=== PATIENT | male | born 1975 | race Two or more races ===

== ENCOUNTER 2024-06-11 14:21 | Outpatient (AMB) | payer OTHER, SELFPAY ==
--- NOTE | 2024-06-11 14:47 | A.OFFVIS_ITS ---
Intake Visit Reasons: Vasectomy Intake Note: Patient is present for Vasectomy Urology Medication:none Blood Thinner:none Antibiotic Allergies:none Business Office Representative Required: No Accompanied by: Spouse Allergies No Known Allergies Allergy (Verified 06/11/24 14:54) [facility] Medical History Patient denies medical problems Office Procedures Vasectomy 15878 - Vasectomy Office Meds lidocaine (PF) 10 mg/mL (1 %) injection solution Performing Provider: Osmar Johnson MD [place] [facility] Administered by: Maria M Ruiz RN on 06/11/24 14:47 Dose Route Admin Location Dispensed Lot Number Expiration Date [facility] Wool Handler 2 mL Infiltration 10 mL Assessment & Plan Assessment & Plan Orders: Orders AMB Vasectomy Today R45.89 - Other symptoms and signs involving emotional state Coding CPT Codes Office Procedure - CPT: 13705 - Vasectomy ([id number])
--- NOTE | 2024-06-11 14:47 | MHC.OFFVIS ---
Intake Visit Reasons: Vasectomy Intake Note: Patient is present for Vasectomy Urology Medication:none Blood Thinner:none Antibiotic Allergies:none Tail Worker Required: No Accompanied by: Spouse Allergies No Known Allergies Allergy (Verified 06/11/24 14:54) [facility] Medical History Patient denies medical problems Office Procedures Vasectomy 55606 - Vasectomy Office Meds lidocaine (PF) 10 mg/mL (1 %) injection solution Performing Provider: Osmar Johnson MD [place] [facility] [facility] Administered by: Maria M Ruiz RN on 06/11/24 14:47 Dose Route Admin Location Dispensed Lot Number Expiration Date [facility] Supervisor Esters [employer] Emulsifiers 2 mL Infiltration 10 mL Assessment & Plan Assessment & Plan Orders: Orders AMB Vasectomy Today R45.89 - Other symptoms and signs involving emotional state Coding CPT Codes Office Procedure - CPT: 01341 - Vasectomy ([id number])
--- OUTSIDE RECORDS SUMMARY | 2024-06-11 15:59 | XMS_ITS | Clinical Summary ---
Author Organization [employer] Address [address] [facility] 7[address] [place] [address] Care Team Providers Care Linen Sorter Name Role Phone Lucia Kaiser PA-C Primary Care Provider Unav ailable Allergies No known active allergies Medications No known medications Active Problems Problem Noted Date Diagnosed Date Mixed hyperlipidemia 05/12/2023 Overview (05/12/2023): Lipid panel 10/2022 tot chol 289, LDL 218, HDL 50, trig 103. Pt declined starting statin he declined at that time Encounters Date Type Department Care Team Description 05/05/2024 3:00 PM EST Office Visit [facility] DENTAL [address] [place] [address] Tamara Peters Stage 2 grade A localized periodontitis per AAP/EFP 2017 classification (Primary Dx); Encounter for dental examination; Accretions on teeth; Dental calculus 05/04/2024 Travel from Last 3 Months Social History Tobacco Use Types Packs/Day Years Used Date Smoking Tobacco: Never Smokeless Tobacco: Never Tobacco Cessation:Counseling Given: Not Answered Alcohol Use Standard Drinks/Week Comments Yes 0 (1 standard drink = 0.6 oz pur e alcohol) Socially Housing Stability Answer Date Recorded What is your housing situation today? I have delta anthony 01/07/[address] you li ve. Do you have problems with any of the following? None of the above 01/07/2023 Food Insecurity Answer Date Recorded Within the past 12 months, y ou worried that your food would run out before you got money to buy more: Never True 01/07/2023 Within the past 12 months,th e food you bought just didn't last and you didn't have enough money to get more: Never True Transportation Answer Date Recorded In the past 12 months, has l ack of transportation kept you from medical appts, meetings, work or from getting things needed for daily living? No 01/07/2023 Utilities Answer Date Recorded In the past 12 months, has t he electric, gas, oil or water company threatened to shut off services in your home? No 01/07/2023 Depression Answer Date Recorded Patient Health Questionnaire-2 Score 0 11/05/2022 Comments Unknown Sex and Gender Information Value Date Recorded Sex Assigned at Choose not to disclose 8:48 AM EDT Legal Sex Male 8:47 AM EDT Gender Identity Choose not to disclose 8:48 AM EDT Sexual Orientation Choose not to disclose 2022 8:48 AM EDT Last Filed Vital Signs Vital Sign Reading Time Taken Comments Blood Pressure 100/60 11/05/2022 12:20 PM EDT Pulse 60 11/05/2022 12:20 PM EDT Temperature 36.2 ??C (97.2 ??F) 11/05/2022 12:20 PM E DT Respiratory Rate 16 11/05/2022 12:20 PM EDT Oxygen Saturation - - Inhaled Oxygen Concentration - - Weight 73.8 kg (162 lb 9.6 oz) 11/05/2022 12:20 PM EDT Height 170.8 cm (5' 7.25 ) 11/05/2022 12:20 PM E DT Body Mass Index 25.28 11/05/2022 12:20 PM EDT Plan of Treatment Upcoming Encounters Date Type Department Care Team (Late st Contact Info) Description 11/05/2024 4:00 PM EDT Office Visit [facility] DENTAL [address] [place] [address] Megan Avila Health Maintenance Due Date Last Done Comments CT Colonography 1976 Colonoscopy 1976 Colorectal Cancer Screening 1976 FIT DNA/Cologuard 1976 FIT 1976 FOBT 1976 Sigmoidoscopy 1976 Alcohol/Substance Use Screening 1988 Family Planning (PISQ) 12/14/1991 DTaP/Tdap/Td Vaccines (1 - Tdap) 12/14/1995 Hepatitis B Vaccines (1 of 3 - 19+ 3-dose series) 12/14/1995 Depression Screening 11/06/2023 11/05/2022, 11/05/2022 SDOH Screening 11/06/2023 11/05/2022 COVID-19 Vaccine (1 - 2023-2 5 season) 2023 Influenza Vaccine (#1) 2023 Dental Oral Exam 11/03/2024 05/05/2024 Dental Prophylaxis 11/03/2024 05/05/2024, 09/02/2023, 02/05/2023 Tobacco Screening 05/05/2025 05/05/2024 Dental X-Ray: Bitewings 05/06/2025 05/05/19, 02/05/2023 Dental X-Ray: Full Mouth 02/06/2026 02/05/2023 Zoster Vaccines (1 of 2) 2026 Lipid Panel 05/20/2028 05/21/2023, 11/06/2022, 11/06/2022 RSV Patients and Patients Aged 60 years or older (1 - 1-dose 75+ series) 12/14/2051 HIV Screening Completed 11/06/2022, 11/06/2022 Hepatitis C Screening Completed 11/06/2022 , 11/06/2022 HIB Vaccines Aged Out No longer eligi ble based on patient's age to complete this topic HPV Vaccines Aged Out No longer eligi ble based on patient's age to complete this topic Hepatitis A Vaccines Aged Out No long er eligible based on patient's age to complete this topic IPV Vaccines Aged Out No longer eligi ble based on patient's age to complete this topic Meningococcal Vaccine Aged Out No brigida shonda eligible based on patient's age to complete this topic Pneumococcal Vaccine: Pediatrics (0 to 5 Years) and At-Risk Patients (6 to 49) Years) Aged Out No longer eligible b ased on patient's age to complete this topic RSV under 20 months Aged Out No longe r eligible based on patient's age to complete this topic Rotavirus Vaccines Aged Out No longer eligible based on patient's age to complete this topic Procedures Procedure Name Priority Date/Time Associated Diagnosis Comments Full PROPHYLAXIS - ADULT Routine 05/05/2024 3:00 PM EST BITEWINGS - 4 RADIOGRAPHIC IMAGES Routine 05/05/2024 3:00 PM EST PERIODIC ORAL EVALUATION - ESTABLISHED PATIENT Routine 05/05/2024 3:00 PM EST 14 EXTRACTION Routine 05/05/2024 12:00 AM EST LIPID PANEL, STANDARD Routine 05/21/2023 11:16 AM EDT INTRAORAL - COMPLETE SERIES OF RADIOGRAPHIC IMAGES Routine 02/05/2023 2:00 PM EST HEPATITIS C AB W/REFLEX TO HCV QUANT NAAT IF POSITIVE Routine 11/06/2022 9:07 AM EDT HIV ANTIBODY/ANTIGEN, 4TH GENERATION Routine 11/06/2022 9:07 AM EDT from Last 3 Months or Most Recently Relevant to Health Maintenance Results * (ABNORMAL) Lipid Panel, Standard (05/21/2023 11:16 AM EDT) Cholesterol, Total 243(H) 100 - 199 mg/dL [facility] Triglycerides 95 0 - 149 mg/dL [facility] HDL Cholesterol 50 >39 mg/dL [facility] VLDL Cholesterol Reji 17 5 - 40 mg/dL [facility] 1 LDL Chol Calc (NIH) 176(H) 0 - 99 mg/dL [facility] 1 05/21/2023 11:1 6 AM EDT 05/21/2023 Narrative [facility] - 05/23/2023 12:05 AM EDT Performed at: ??01 - [facility] [address] ??[id number] Lamp Replacer: Tiffanie Costa MD, Phone: ??[phone] Lucia Kaiser PA-C LAB BLOOD ORDERABLES Final Result [facility] * HIV Antibody/Antigen, 4th Generation (11/06/2022 9:07 AM EDT) Result 4th Gen HIV Antibody Antigen NEGATIVE (NEG) [facility] Comment: Negative for antibodies to HIV 1 and HIV 2 and P24 antigen. Reference range: Negative Additional note: Written patient authorization is required for each separate release of this test result. This test was performed on the Foodoro immunoassay system. Testing performed or reported by [facility], a Service of [facility], [address] [place] [address] Alex Jarvis MD, Lead Ios Developer CLIA# [id number] 11/06/2022 9:07 AM EDT 11/06/2022 9:12 AM EDT Lucia Kaiser PA-C LAB BLOOD ORDERABLES Final Result Performing Organization Address City/[facility] Co de Phone Number [facility] [address] [place] [address] * Hepatitis C Antibody w/Reflex HCV Quant PCR (11/06/2022 9:07 AM EDT) Hepatitis C Virus Ab, Serum NEGATIVE (NEG) [facility] Comment: Reference range: Negative This test was performed on the Foodoro immunoassay system. Testing performed or reported by [facility], a Service of [facility], [address] [place] [address] Alex Jarvis MD, Lead Ios Developer [facility]# [id number] 11/06/2022 9:07 AM EDT 11/06/2022 9:12 AM EDT Lucia Kaiser PA-C LAB BLOOD ORDERABLES Final Result Performing Organization Address City/[facility] Co de Phone Number [facility] [address] [place] [address] from Last 3 Months or Most Recently Relevant to Health Maintenance Insurance * Guarantor: Tyrone Coh Account Type Relation to Patient Date of Phone Billing Address Personal/Family Self [address] [place] [address] [facility] , [address] [place] [id number] * Guarantor: Tyrone Cho Account Type Relation to Patient Date of Phone Billing Address Dental Self 1975 [address] [facility] [address] [place] [address] [facility] Care Teams Linen Sorter Relationship Specialty Start Date End Date Lucia Kaiser PA-C PCP - General Family Medicine 11/25/22
--- OUTSIDE RECORDS SUMMARY | 2024-06-11 16:00 | XMS_ITS | Data Portability ---
Author Organization [facility], [id number] Address [address] [place] [address] Assessment No assessment recorded. Plan of Treatment Reminders Order Date Submit Date Provider Last Modified By Organization Details Last Modified Time Details Appointments None recorded. Lab measles + mumps + rubella virus IgG panel, QN, serum or plasma 2022 023 [facility], [address] [place], [address], 3 10:06:52 varicella zoster virus IgG Ab, QN, IA, serum 2022 023 [facility] [address] [place], [address], 3 08:07:31 hepatitis B surface Ab, quantitativ e, serum 2022 023 [facility], [address] [place], [address], 3 08:07:31 Referral None recorded. Procedures None recorded. Surgeries None recorded. Imaging None recorded. Medication Orders Tubersol 5 tub. unit/0.1 mL intradermal injection solution 2022 023 [email or web address] Not available 3 14:01:24 Patient TargetsNo targets recorded. Patient InstructionsNo instructions recorded. Reason for Referral None Reported. Results Created Date Observation Date Name Description Value Unit Range Abnormal Flag Note LastModifiedBy Organization Detail LastModifiedTime 06/06/19 23 06/06/2022 HEPAT ITIS B SURF AB QUANT hepatitis B surf Ab quant <3.1 mIU/m L immuni ty>9.9 below low normal Statu s of Immun ity Anti- HBs Level ----- ----- ----- --- ----- ----- ---- Incon siste nt with Immun ity 0.0 - 9.9 Consi stent with Immun ity >9.9 Not Available [facility] ([facility]) [address] [facility], [place], [address], 06/06/2022 08:07:30 06/06/19 23 06/06/2022 VARIC IRENE- ZOSTE R V AB, IGG varicella zoster IgG 3113 index immune >165 Negat patrick <135 Equiv ocal 135 - 165 Posit patrick >165 A posit patrick resul t gener ally indic ates expos ure to the patho gen or admin istra tion of speci fic immun oglob ulins , but it is not indic ation of activ e infec tion or stage of disea se. Not Available [facility] ([facility]) [address] [facility], [place], [address], 06/06/2022 08:07:31 06/06/19 23 06/06/2022 MEASL ES/MU MPS/R UBELL A IMMUN ITY rubella antibodies, IgG 3.68 index immune >0.99 Non-i mmune <0.90 Equiv ocal 0.90 - 0.99 Immun e >0.99 Not Available [facility] ([facility]) [address] [place], [address], 06/06/2022 10:06:52 06/06/19 23 06/06/2022 MEASL ES/MU MPS/R UBELL A IMMUN ITY measles antibodies, IgG >300.0 AU/mL immune >16.4 Negat patrick <13.5 Equiv ocal 13.5 - 16.4 Posit patrick >16.4 Prese nce of antib odies to Rubeo la is presu mptiv e evide nce of immun ity excep t when acute infec tion is suspe cted. Not Available [facility] ([facility]) [address] [facility], [place], [address], 06/06/2022 10:06:52 06/06/19 23 06/06/2022 MEASL ES/MU MPS/R UBELL A IMMUN ITY mumps abs, IgG 281.0 AU/mL immune >10.9 Negat patrick <9.0 Equiv ocal 9.0 - 10.9 Posit patrick >10.9 A posit patrick resul t gener ally indic ates past expos ure to Mumps virus or previ ous vacci natio n. Not Available [facility] ([facility]) [address] [facility], [place], [address], 06/06/2022 10:06:52 Result Notes None recorded. Medical Equipment None Reported. Medications Name Sig Start Date Stop Date Status Note LastModified by Organization Details LastModified Time amoxicillin 500 mg capsule TAKE 1 CAPSULE BY MOUTH EVERY 8 HOURS UNTIL DONE active Not Available Not Available N ot Available Tubersol 5 tub. unit/0.1 mL intradermal injection solution Inject 0.1 mL by intradermal route as directed for 1 day. 2022 active Not Available Not Available Not Avai lable Vitals None Recorded Social History None recorded. Functional Status None recorded. Mental Status None recorded. Family History Nothing Reported. Medical History No medical history recorded. Past Encounters Encounter ID Performer Location Encounter Start Date Encounter Closed Date Diagnosis/Indication Diagnosis SNOMED-CT Code Diagnosis ICD10 Code Diagnosis [place] [id number] [place] [address] [address] 05/26/2022 12:10:26 05/26/2022 14:05:55 History and physical examination, pre-employment 329524844 Z02.1 [id number] [facility] [address] [facility] [address] [place] [address] 06/04/2022 16:54:08 06/04/2022 19:06:14 History and physical examination, occupation 621478359 Z02.1 Health Concerns Section Related Observation LastModified by Organization Detai ls LastModified Time None Recorded Concern Status LastModified by Organization Details LastModified Time None Recorded Advance Directives Directive None Recorded Payers Encounter Date Sequence Insurance Name Policy Number Policy Ivan Covered Member ID Ivan Member ID Guarantor Name 05/26/2022 DO NOT USE Tyrone Cho [id number] Tyrone Cho 06/04/2022 DO NOT USE Tyrone Cho [id number] Tyrone Cho
== END 2024-06-11 16:12 | disposition home or self-care (01) ==
LOC: HO.HUSH 14:22
PROVIDERS: PCP Family Medicine; Visit Provider Urology
DX: R45.89 Other symptoms and signs involving emotional state (principal); Z30.2 Encounter for sterilization
CPT/HCPCS: 55250

== ENCOUNTER → 2024-06-11 14:21 | Outpatient (BNVA) | payer OTHER, SELFPAY | PROVIDERS: PCP Family Medicine; Visit Provider Urology | DX: R45.89 Other symptoms and signs involving emotional state (principal); Z30.09 Encounter for other general counseling and advice on contraception; Z30.2 Encounter for sterilization; Z98.52 Vasectomy status | CPT/HCPCS: 55250; J2003 ==

== ENCOUNTER 2024-10-27 14:52 | Outpatient (AMB) | payer OTHER, SELFPAY ==
--- NOTE | 2024-10-27 15:11 | MHC.OFFVIS ---
Intake Visit Reasons: 3M follow up/ semen analysis Intake Note: Patient is present for Post-Vasectomy Urology Medication:none Blood Thinner:none Antibiotic Allergies:none Assistant Professor Of Marine Biology Required: No Accompanied by: Self / Same As Patient Allergies No Known Allergies Allergy (Verified 10/27/24 15:11) HPI Comments Details: Jarod is a very pleasant 48-year-old male patient of Dr. Kaiser. He presents to the office today for - vasectomy follow-up No sperm seen per high-power field Minimal issues following procedure Vasectomy follow-up The patient presents for vasectomy follow-up.? He is currently He has fathered -1 child with a single partner The youngest child is -20 years old His partner is aware and permissive for a vasectomy Current form of control is hormones Current employment is information technologist [employer] Medical History Patient denies medical problems Review of Systems Const Denies chills and Denies fever(s) Card Reports no additional complaints and Denies syncope Resp Denies cough GI Denies abdominal pain and Denies heartburn Reports as per HPI and Denies change in libido Neuro Denies syncope Psych Denies change in libido Endo Denies change in libido Physical Exam Const General: cooperative, healthy appearing, comfortable and no acute distress Orientation/consciousness: patient oriented x3 HEENT Face and sinus: Yes normal facial exam Mouth: moist mucous membranes Neck Neck: Yes normal visual inspection, Yes full ROM and Yes trachea midline Chest Chest palpation & inspection: normal inspection of the chest Resp Effort & Inspection: normal respiratory effort, able to speak in complete sentences and no respiratory distress GI Inspection: Yes normal to inspection Back/Spine/Pelvis Cervical Spine: normal cervical lordosis Thoracic/Lumbar Spine: thoracic and lumbar spine normal to inspection Skin General skin exam: no rashes or lesions noted Neuro General: patient oriented x3, gait normal, tone normal and moves all extremities Extrem General: Yes normal to inspection and Yes capillary refill normal Assessment & Plan Assessment & Plan (1) Anxiety about health: Code(s): R45.89 - Other symptoms and signs involving emotional state Category: Medical Plan P.r.n. follow-up Patient Instructions: This note is constructed using voice recognition software. While every effort has been made to ensure accuracy acoustics teacher errors may have been included. Imaging studies, laboratory and physical exam results were discussed and reviewed in detail. No major barriers to patient understanding were identified. An opportunity to ask questions regarding the treatment plan was provided. All questions were answered. The patient expressed understanding and agreement with the above treatment plan. The patient is aware they should contact our office by phone for worsening of their current condition or the appearance of new urologic symptoms. Compliance is encouraged with any medications and followup testing that is ordered. It is a privilege to participate in the urologic care of your patient. If you have any questions or concerns regarding treatment for the above conditions, or other urologic issues, please do not hesitate to contact me. The office telephone contact is [phone]. Sincerely, Dr Osmar Johnson MD, [facility] - Urology Compassionate Specialist Care for the Genitourinary System Coding Level of Care Code Est Pt Level 3 (90598) Diagnoses Anxiety about health R45.89
--- OUTSIDE RECORDS SUMMARY | 2024-10-27 15:50 | XMS_ITS | Clinical Summary ---
Author Organization [employer] Address [address] [facility] [address] [place] [address] Care Team Providers Care Yarn Skeins Examiner Name Role Phone Lucia Kaiser PA-C Primary Care Provider Unav ailable Allergies No known active allergies Medications No known medications Active Problems Problem Noted Date Diagnosed Date Mixed hyperlipidemia 05/12/2023 Overview (05/12/2023): Lipid panel 10/2022 tot chol 289, LDL 218, HDL 50, trig 103. Pt declined starting statin he declined at that time Social History Tobacco Use Types Packs/Day Years [...] 60 11/05/2022 12:20 PM EDT Temperature 36.2 C (97.2 F) 11/05/2022 12:20 PM EDT Respiratory Rate 16 11/05/2022 12:20 PM EDT Oxygen Saturation - - Inhaled Oxygen Concentration - - Weight 73.8 kg (162 lb 9.6 oz) 11/05/2022 12:20 PM EDT Height 170.8 cm (5' 7.25 ) 11/05/2022 12:20 PM E DT Body Mass Index 25.28 11/05/2022 12:20 PM EDT Plan of Treatment Upcoming Encounters Date Type Department Care Team (Late st Contact Info) Description 04/05/2025 4:00 PM EST Office Visit [facility] DENTAL [address] [place] [address] [address] Health Maintenance Due Date Last Done Comments CT Colonography 1976 Colonoscopy 1976 Colorectal Cancer Screening 1976 FIT DNA/Cologuard 1976 FIT 1976 FOBT 1976 Sigmoidoscopy 1976 Disability Screening 1976 Alcohol/Substance Use Screening 1988 Family Planning (PISQ) 12/14/1991 DTaP/Tdap/Td Vaccines (1 - Tdap) 12/14/1995 Hepatitis B Vaccines (1 of 3 - 19+ 3-dose series) 12/14/1995 Depression Screening 11/06/2023 11/05/2022, 11/05/2022 SDOH Screening 11/06/2023 11/05/2022 COVID-19 Vaccine (1 - 2023-2 5 season) 2023 Dental Oral Exam 11/03/2024 05/05/2024 Dental Prophylaxis 11/03/2024 05/05/2024, 09/02/2023, 02/05/2023 Influenza Vaccine (#1) 2024 Tobacco Screening 05/05/2025 05/05/2024 Dental X-Ray: Bitewings [...] patient's age to complete this topic Meningococcal B Vaccine Aged Out No l onger eligible based on patient's age to complete this topic Meningococcal Vaccine Aged Out No brigida shonda eligible based on patient's age to complete this topic Pneumococcal Vaccine: Pediatrics (0 to 5 Years) and At-Risk Patients (6 to 49) Years Aged Out No longer eligible b ased [...] ESTABLISHED PATIENT Routine 05/05/2024 3:00 PM EST LIPID PANEL, STANDARD Routine 05/21/2023 11:16 [...] - 05/23/2023 12:05 AM EDT Performed at: 01 - [facility] [address] [id number] Police Department Secretary: Tiffanie Costa MD, Phone: [phone] Lucia Kaiser PA-C LAB BLOOD ORDERABLES Final Result [facility] * HIV Antibody/Antigen, 4th Generation (11/06/2022 9:07 AM EDT) Result 4th Gen HIV Antibody Antigen NEGATIVE (NEG) [facility] Comment: Negative for antibodies to HIV 1 and HIV 2 and P24 antigen. Reference range: Negative Additional note: Written patient authorization is required for each separate release of this test result. This test was performed on the Humphrey Cue Selector immunoassay system. Testing performed or reported by [facility], a Service of [facility], [address] [place] [address] Alex Jarvis MD, Philosophy Instructor [facility]# [id number] 11/06/2022 9:07 AM EDT 11/06/2022 9:12 AM EDT Lucia Kaiser PA-C LAB BLOOD ORDERABLES Final Result Performing Organization Address City/[facility]/ZIP Co de Phone Number [facility] [address] [place] [address] * Hepatitis C Antibody w/Reflex HCV Quant PCR (11/06/2022 9:07 AM EDT) Hepatitis C Virus Ab, Serum NEGATIVE (NEG) [facility] Comment: Reference range: Negative This test was performed on the RaySat Cue Selector immunoassay system. Testing performed or reported by [facility], a Service of [facility], [address] [place] [address] Alex Jarvis MD, Philosophy Instructor [facility]# [id number] 11/06/2022 9:07 AM EDT 11/06/2022 9:12 AM EDT Lucia Kaiser PA-C LAB BLOOD ORDERABLES Final Result Performing Organization Address City/[facility] Co de Phone Number [facility] [address] [place] [address] from Last 3 Months or Most Recently Relevant to Health Maintenance Insurance * Guarantor: Tyrone Cho Account Type Relation to Patient Date of Phone Billing Address Personal/Family Self [address] [place] [address] [facility] * Guarantor: Tyrone Cho Account Type Relation to Patient Date of Phone Billing Address Dental Self [address] [place] [address] [facility] Care Teams Yarn Skeins Examiner Relationship Specialty Start Date End Date Lucia Kaiser PA-C PCP - General Family Medicine 11/25/22
== END 2024-10-27 16:49 | disposition home or self-care (01) ==
LOC: HO.HUSH 14:53
PROVIDERS: PCP Family Medicine; Visit Provider Urology
DX: R45.89 Other symptoms and signs involving emotional state (principal)
CPT/HCPCS: 99213